=== PATIENT | male | born 1935 | race African-American/Black ===

== ENCOUNTER 2016-05-16 20:10 | Inpatient (IN) | payer OTHER ==
--- NOTE | ~2016-05-16 | HP ---
Unit #: [id number] #: [id number] Patient: MAGAN CHOE [id number] [address] [place], [place] [address] [id number] I MR#: [id number] NAME: MAGAN CHOE. ROOM: 228 Age: 81 Sex: M Admission Date: 05/16/2016 : 1935 Attending Physician: Mau Butler M.D. HISTORY AND PHYSICAL CHIEF COMPLAINT Diarrhea. HISTORY OF PRESENTING ILLNESS A 81-year-old male who has multiple chronic medical issues and is under hospice care was having diarrhea and a lot of stool in his colostomy bag for the last two days or so. Patient's [facility] nurse, Jovanna, advised patient's daughter to send him to the hospital for possible dehydration and treatment. I have discussed with the patient's daughter, Tara, at length. She still confirms that patient is Do Not Resuscitate and will continue to be under hospice care. Per patient's daughter, he was having loose stool for the last two days or so, and it was thought that he was dehydrated. In the ER, patient's renal functions are worse than normal, and chest x-ray, single views, shows possible retrocardiac infiltrate. Patient had an episode of vomiting, although since admission he has not had any vomiting, and since admission, he has not had a lot of stool in his colostomy bag. Patient is not able to provide any history, and most of the history was taken from patient's daughter and patient's son who are at the bedside. No complaint of fever, chills, or rigors. Patient does not communicate much. He just talks softly once in a while per patient's son. PAST MEDICAL HISTORY 1. Chronic kidney disease stage 4. 2. Chronic anemia. 3. Hemorrhagic stroke. 4. Peripheral vascular disease. 5. Hypertension. 6. Benign prostatic hypertrophy. HOME MEDICATIONS 1. Fluoxetine 20 mg daily. 2. Haldol 2 mg at bedtime. 3. Flomax 0.4 mg daily. 4. Vitamin D3 at 50,000 units weekly. 5. Lortab 5/325 at 1 tablet q.4 p.r.n. 6. Famotidine 20 mg daily. 7. Haldol 2 mg every 6 hours p.r.n. 8. Robitussin on p.r.n. basis. 9. Sodium bicarbonate 1300 mg twice daily. 10. Combivent 1 inhaler q.4 p.r.n. SOCIAL HISTORY Patient lives at home with his daughter. No history of smoking, alcohol, Unit #: [id number] #: [id number] Patient: MAGAN CHOE or drug abuse at this time. PAST SURGICAL HISTORY 1. Carotid endarterectomy. 2. Colectomy with colostomy bag. ALLERGIES No known drug allergies. FAMILY HISTORY Unremarkable. REVIEW OF SYSTEMS As per History of Presenting Illness. PHYSICAL EXAMINATION GENERAL: Patient is lying in bed in no respiratory distress. VITAL SIGNS: Blood pressure is 120/68, respiratory rate 16, pulse 130, and temperature 97.5. On admission, patient's blood pressure was 90/63, respiratory rate 15, pulse 108, and temperature 97.4. HEENT: Head is normocephalic. NECK: Supple. CHEST: Decreased air entry bilaterally. CARDIOVASCULAR: S1 and S2 positive. Tachycardia. ABDOMEN: Soft. Colostomy bag seems to be empty at this time. No tenderness or rigidity. Bowel sounds are positive. EXTREMITIES: Negative edema. Patient has contractures on the upper extremities. NEUROLOGIC: Exam is very limited. DIAGNOSTIC STUDIES LABORATORY: WBC 7.7, hemoglobin 9, hematocrit 26.2, and platelet count of 230,000. Influenza A and B are negative. Sodium 134, potassium 4.4, chloride 99, BUN 49, and creatinine 5. Liver enzymes are stable. Urinalysis showed 2+ leukocyte esterase, but urine bacteria is negative. Stool study so far is negative. C. difficile is also negative. IMAGING: Chest x-ray was done which showed retrocardiac infiltrate in the left lower lobe, possible pneumonia. ASSESSMENT Patient is being admitted to medical/surgical unit with: 1. Acute on chronic renal failure. Patient has a history of chronic kidney disease stage 4. 2. Diarrhea per patient's family. Clostridium difficile has been ruled out at this time. 3. Probable pneumonia. 4. History of cerebrovascular accident in the past. 5. Anemia of chronic disease. 6. History of peripheral vascular disease. 7. Dementia. 8. Benign prostatic hypertrophy. 9. Do Not Resuscitate. 10. Under hospice care. PLAN Admit to telemetry unit. IV fluids are being started. IV Rocephin and Zithromax are being started for possible community-acquired pneumonia. Unit #: [id number] #: [id number] Patient: MAGAN CHOE SCDs will be done. Home medications have been reviewed and adjusted. I have discussed with patient's daughter at length about the plan of care. She does verbalize understanding, and she would like to take him back once he is stable. Dictated by Federica Yang TD: 05/17/2016 15:28 JOB #: [id number] HISTORY AND PHYSICAL Page 1 of 1 X Alesha Odom MD X HISTORY AND PHYSICAL
--- NOTE | ~2016-05-16 | CO ---
Unit #: [id number] #: [id number] Patient: MAGAN CHOE [id number] [address] [place], [place] [address] [id number] I MR#: [id number] NAME: MAGAN CHOE ROOM: 228 Age: 81 Sex: M Admission Date: 05/16/2016 : 1935 Attending Physician: Mau Butler M.D. Consultation Date: 05/19/2016 CONSULTATION REPORT REASON FOR CONSULTATION Renal failure and hypercalcemia. Thank you very much for asking us to see this patient in consultation. HISTORY OF PRESENT ILLNESS This is a 81-year-old male, who has a history of chronic kidney disease stage 4, whose creatinine when he left the hospital on 04/27/2016 was 3.1, calcium 8.6 was in a group home. He has a history of CVA, immobilization, vascular dementia. Apparently, he is under the hospice care now and was sent back from group home due to worsening mental status and increased ostomy output. The patient was noted to have a BUN and creatinine of 49 and 5.0 with a calcium of 12.1. BUN and creatinine yesterday 55 and 4.4 with calcium 11.5, sodium of 134, and potassium of 4.3. The patient currently has decreased response, really will not answer any questions. PAST MEDICAL HISTORY History of hemorrhagic CVA in the past with immobilization; history of vascular dementia; history of GI bleed; history of BPH; history of hypertension; history of peripheral vascular disease; history of chronic kidney disease, stage 4; history of Clostridium difficile in the past; history of anemia, questionable outpatient Procrit in the group home; history of status post colectomy with colostomy. He is status post endarterectomy, history of Sikhism. SOCIAL HISTORY He is a previous smoker, none now. prison, he is under hospice care now. ALLERGIES No known drug allergies. FAMILY HISTORY He did have a son who is on dialysis. REVIEW OF SYSTEMS Unable to obtain. PHYSICAL EXAMINATION GENERAL: Again, he has decrease response, he will kind of nod, but really will not follow any major commands or answer questions. He is contracted. VITAL SIGNS: His temperature is 98.5, pulse 65 to 125, blood pressure 95 to 134 over 50 to 70s. Unit #: [id number] #: [id number] Patient: MAGAN CHOE HEENT: He is normocephalic and atraumatic. Pupils are equal, round, and reactive to light. His mouth is dry. No erythema. NECK: Supple. No adenopathy. CARDIAC: Regular rate and rhythm without a rub. No S3 or S4. LUNGS: Have bilateral rhonchi. ABDOMEN: Bowel sounds positive. Ostomy present, nontender. EXTREMITIES: He has no lower extremity swelling. SKIN: No rashes. : Deferred. DIAGNOSTIC STUDIES LABORATORY RESULTS: Showed a sodium of 134, potassium of 4.3, chloride is 103, bicarb is 24, BUN 55, creatinine is 4.4 down from 5, calcium is 11.5. UA shows specific gravity of 1.022, 1+ protein, 25 to 50 rbc's, 5 to 10 wbc's, only 20 to 30 gram-negative rods. His stool is negative for Clostridium difficile. IMAGING STUDIES: His chest x-ray is consistent with pneumonia. ASSESSMENT AND PLAN 1. Acute on chronic kidney disease, stage 4. Certainly renal function is worse from when he was discharged. I suspect this is volume related with large ostomy output and decreased intake. I would like to check a renal ultrasound just to rule out obstruction, although certainly if he does have it, we may need to have a chronic Hardin. I really do not want to do any further workup on him, again he is in hospice care. His renal function is improving with fluid. We will increase his normal saline to 125 mL an hour and certainly not a dialysis candidate. We will have check labs in a.m. if here. 2. Hypercalcemia, increased calcium secondary to most likely volume related with volume depletion. Again, I really doubt we should do any further workup or just continue hydration while he is here. Hospice is going to re-evaluate questionable discomfort care. 3. Pneumonia. 4. History of cerebrovascular accident, decreased mental status. 5. In hospice. Dictated byIsak Schwarz M.D. KARELY/chemo TD: 05/19/2016 08:33 JOB #: [id number] CONSULTATION REPORT Page 1 of 1 X Grabiel Schwarz MD CONSULTATION REPORT
--- NOTE | ~2016-05-16 | EKG ---
PATIENT: MAGAN CHOE UNIT #: [id number] Ventricular Rate: 112 BPM Atrial Rate: 112 BPM P-R Interval: 142 ms QRS Duration: 76 ms Q-T Interval: 320 ms QTC Calculation(Bezet): 436 ms P [place]: 86 degrees Calculated R [place]: 53 degrees Calculated T [place]: 68 degrees Diagnosis Line: Sinus tachycardia Diagnosis Line: Otherwise normal ECG Diagnosis Line: When compared with ECG of 21-APR-2015 18:25, Diagnosis Line: Premature atrial complexes are no longer Present Diagnosis Line: Confirmed by MELANIE NICOLE MD ([id number]) on Diagnosis Line: 05/17/2016 2:26:33 PM INTERPRETING MD: BONNIE GERONIMO
--- NOTE | ~2016-05-16 | DS ---
Unit #: [id number] #: [id number] Patient: MAGAN CHOE [id number] [address] [address] [id number] I MR#: [id number] NAME: MAGAN CHOE. ROOM: 228 Age: 81 Sex: M Admission Date: 05/16/2016 : 1935 Discharge Date: 05/19/2016 Attending Physician: Mau Butler M.D. Primary Care Physician: Mireya Primary Care Physician DISCHARGE SUMMARY DISCHARGE DIAGNOSES 1. Acute kidney injury on chronic kidney disease. 2. Pneumonia. 3. Anemia of chronic disease. 4. Dementia. 5. History of cerebrovascular accident. 6. History of benign prostatic hypertrophy. 7. Hospice care. DISCHARGE MEDICATIONS 1. Combivent inhaler q.4 h. p.r.n. 2. Sodium bicarbonate 1300 mg p.o. b.i.d. 3. Flomax 0.4 mg daily. 4. Prozac 20 mg daily. 5. Desyrel 50 mg q.h.s. 6. Haldol 2 mg q.h.s. and q.6 h. p.r.n. for agitation. 7. Robitussin p.r.n. for cough and congestion. 8. Pepcid 20 mg daily. 9. [place] 5/325 one tablet q.4-6 h. p.r.n. pain. 10. Vitamin D 50,000 units weekly. 11. Z-Bowen. DISPOSITION Going to [facility] respite/hospice unit. CONSULTANTS DONE THIS HOSPITAL STAY Nephrology, Dr. [place]. LABS AND DIAGNOSTICS AND PROCEDURES DONE THIS HOSPITAL STAY 1. Chest x-ray: Airspace density concerning for pneumonia. 2. Renal ultrasound: Bilateral cortical thinning. Medical renal disease. Multiple left-sided nonobstructing renal stones. HISTORY OF PRESENT HOSPITAL STAY Please refer to H and P done by my colleague for the initial presentation on this male. ACTIVE PROBLEMS AND DIAGNOSES Acute kidney injury on chronic kidney disease: Status post evaluation per Nephrology. At this point will continue current bicarb and current medications. Patient also evaluated by hospice and going into hospice care. At this point again continue all the medications. Will defer for Unit #: [id number] #: [id number] Patient: MAGAN CHOE the discontinuation of the current meds and leaving the patient on comfort measures only per hospice at the retirement. Pneumonia: Was treated with the Zithromax and Rocephin. We will continue with the Z-Bowen. Anemia of chronic disease, stable. Dementia. History of CVA. History of BPH. DISPOSITION As above. DISCHARGE MEDICATIONS As above. Dictated by... Mau Butler M.D. OC/delores TD: 05/19/2016 18:35 JOB #: [id number] DISCHARGE SUMMARY Page 1 of 1 X Mau Butler MD X DISCHARGE SUMMARY
--- NOTE | ~2016-05-16 | CR72 ---
[facility] A Service of [facility] RADIOLOGY TEXT RESULTS PATIENT: MAGAN CHOE LOCATION: [facility] : 37 UNIT #: [id number] AGE: [address]: Morales Arizmendi MD SEX: M ORDER DR: [id number] [facility] [address] [place] [facility]. [place], [place] [address] [id number] MR#: [id number] Acc #: [id number] NAME: MAGAN CHOE. : 1935 SEX: M STUDY DATE/TIME: 05/16/20162000 UNIT: [facility] ROOM: STUDY DESCRIPTION: CR Chest Single View Portable Attending Physician: Morales Arizmendi M.D. Ordering Physician: Ed Doctor [id number] [facility] Primary Care Physician: No Primary Care Physician MEDICAL IMAGING REPORT This report is preliminary unless electronic signature is present EXAM Chest portable 05/16/2016 at 20:01 hours HISTORY A 81-year-old man with shortness of air, congestion and weakness today. COMPARISON Chest x-ray 04/22/[address] 04/23/2015 FINDINGS Single upright view of the chest demonstrates the patient to be rotated to the left. Allowing for this, the cardiac, mediastinal and hilar contours are stable. There is patchy left retrocardiac density in the left lower lobe concerning for pneumonia, less likely atelectasis. The right lung is clear. IMPRESSION Film is limited by rotation of the patient. There is retrocardiac airspace density concerning for pneumonia, less likely atelectasis. There is no pleural effusion or edema. STAT * RESULT Dictated by... Magaly Beauchamp M.D. THIS IS AN ELECTRONICALLY VERIFIED REPORT Magaly Beauchamp M.D. at 05/16/2016 9:00 PM [facility] A Service of [facility] RADIOLOGY TEXT RESULTS PATIENT: MAGAN CHOE LOCATION: REPLACED BY [facility] #: [id number] : 37 UNIT #: [id number] AGE: [address]: Morales Arizmendi MD SEX: M ORDER DR: TD: 05/16/2016 20:18 JOB #: [id number] MEDICAL IMAGING REPORT COPY
--- NOTE | ~2016-05-16 | US77 ---
[facility] A Service of [facility] RADIOLOGY TEXT RESULTS PATIENT: MAGAN CHOE LOCATION: C2A 228-01 : 37 UNIT #: [id number] AGE: [address]: Mau Butler MD SEX: M ORDER DR: [id number] [facility] [address]. [place], [place] [address] [id number] I MR#: [id number] Acc #: [id number] NAME: MAGAN CHOE. : 1935 SEX: M STUDY DATE/TIME: 05/19/2016 11:41 UNIT: C2 ROOM: 228 STUDY DESCRIPTION: US Kidney Bilateral Complete Attending Physician: Mau Butler M.D. Ordering Physician: Ashley Schwarz M.D. Primary Care Physician: Primary Care Physician No MEDICAL IMAGING REPORT This report is preliminary unless electronic signature is present EXAM Renal ultrasound INDICATION Chronic kidney disease, stage 4. TECHNIQUE Kamara-scale and color Doppler sonographic images were obtained of the kidneys and bladder. FINDINGS Patient's right kidney is small in size measuring about 8.0 x 4.1 x 4.5 cm. There is no evidence of hydronephrosis. I do think the patient probably has some cortical thinning and certainly it appears to be echogenic. No solid or cystic renal masses are seen on the right and there is no hydronephrosis. Bladder cannot be seen due to the presence of a colostomy. Patient's left kidney is atrophic measuring 7.0 x 3.6 x 3.9 cm. It is also echogenic with cortical thinning and there appear to be multiple shadowing stones within the left kidney. There is no hydronephrosis. No solid or cystic renal masses are seen IMPRESSION 1. Bilateral cortical thinning and increased renal echogenicity in keeping with history of chronic medical renal disease. I also think the left kidney in particular appears atrophic. This is certainly much more apparent than on the prior study from April 23, 2015. 2. Multiple left-sided nonobstructing renal stones. Again these were not clearly identified on the prior examination. CT may be complimentary for additional evaluation. 3. Bladder cannot be visualized due to overlying bowel gas secondary to the patient's colostomy. Dictated by... [facility] A Service of [facility] RADIOLOGY TEXT RESULTS PATIENT: MAGAN CHOE LOCATION: [facility] 228-01 : 37 UNIT #: [id number] AGE: [address]: Mau Butler MD SEX: M ORDER DR: Kimberly Gordon M.D. THIS IS AN ELECTRONICALLY VERIFIED REPORT Kimberly Gordon M.D. at 05/19/2016 4:39 PM YANICK/michel TD: 05/19/2016 14:39 JOB #: [id number] MEDICAL IMAGING REPORT Page 1 of 1 COPY
[~2016-05-16 20:10] MED LIST: ACETAMINOPHEN650 M1 PO; ARANESP INJ; ASPIRIN81 MG; CELEXA PO; COMBIVENT U/D3 M2 INH; DOCUSATE SODIU100 MG PO; FAMOTIDINE PO; FERROUS SU324 ( 65 ) PO; FINASTERIDE5 M1 PO; FLEET ENEMA133 M1 RC; FLOMAX0.4 M1 PO; FLORASTOR250 M1 PO; GENTLE LAXATIVE10 MG RC; HUMIBID-LA600 MG PO; HYDROCODON-ACE1 EAC5 PO; HYDROCODON-ACE1 EAC7 PO; IBUPROFEN200 M1 PO; LEVAQUIN PO; LOPRESSOR PO; MILK OF MAGNESIA PO; MIRALAX17 GM PO; PEPCID PO; PROCRIT2000 U/ML INJ; PROSCAR5 MG PO; PROTONIX PO; QUESTRAN PACK4 G/PK1 PO; SIMETHICONE180 MG PO; SIMVASTATIN40 MG PO; SODIUM BICARBO650 MG PO; TOPROL XL PO; TYLENOL325 M1 PO; ULTRAM PO; ZOCOR PO
[2016-05-16 21:01] LABS: BASOPHIL% 0.1 % (0-2.5); EOSINOPHIL% 0.4 % (0.0-7.0); HEMATOCRIT 26.2 % (38.0-50.0); LYMPHOCYTE# 0.8 X10e3 (1.0-3.5); LYMPHOCYTE% 10.5 % (17.0-45.0); MEAN CELL VOLUME 91.7 FL (83-96); MEAN CORPUSCULAR HEMOGLOBIN 31.4 PG (28-34); MEAN CORPUSCULAR HGB CONC 34.2 g/dL (30-36); MEAN PLATELET VOLUME 6.7 FL (6.5-11.5); MONOCYTE# 0.6 X10e3 (0-1.0); MONOCYTE% 8.2 % (3.0-12.0); NEUTROPHIL# 6.2 X10e3 (1.5-7.1); NEUTROPHIL% 80.8 % (40-75); PLATELET COUNT 230 X10e3 (140-420); RED BLOOD COUNT 2.86 X10e (3.90-5.60); RED CELL DISTRIBUTION WIDTH 15.1 % (11.0-15.5); WHITE BLOOD COUNT 7.7 X10e3 (4.0-10.5)
[2016-05-16 21:05] LABS: DIFF IND NO
[2016-05-16 21:11] LABS: INFLUENZA A NEG (NEG); INFLUENZA B NEG (NEG)
[2016-05-16 21:24] LABS: ALBUMIN SERUM 3.4 g/dL (3.5-5.0); BILIRUBIN,TOTAL 0.4 mg/dL (0.2-2.0); BUN/CREATININE RATIO 9.8; CALCIUM SERUM 12.1 mg/dL (8.4-10.2); GLOM FILT RATE Estimated 14.5 mL/min (>60); POTASSIUM 4.4 mmol/L (3.5-5.1); PROTEIN TOTAL SERUM 8.1 g/dL (6.0-8.3)
[2016-05-16 22:28] LABS: URINE SOURCE CLEAN CATCH
[2016-05-16 22:43] LABS: URINE APPEARANCE CLOUDY; URINE BILIRUBIN NEG (NEG); URINE BLOOD 3+ (NEG); URINE COLOR YELLOW; URINE GLUCOSE NEG (NEG); URINE KETONE TRACE (NEG); URINE LEUKOCYTE ESTERASE 2+ (NEG); URINE NITRATE NEG (NEG); URINE PROTEIN 1+ (NEG); URINE SPECIFIC GRAVITY 1.022 (1.003-1.035); URINE UROBILINOGEN 0.2 MG/DL (NEG)
[2016-05-16 22:47] LABS: CULTURE INDICATED? YES; URBCS1 AUWI 25-50 /[HPF] (0-2); URINE BACTERIA AUWI NEG (NEGATIVE); URINE SQUAMOUS EPITHELIAL CELL FEW /[HPF]
[2016-05-16 22:57] LABS: URINE GRANULAR CAST 0-2 /[HPF]
[2016-05-16] MEDS ORDERED: SELFEMRA20 MG PO (23:01)
[2016-05-16] MEDS ORDERED: HALOPERIDOL2 MG PO ×2 (23:01→23:04)
[2016-05-16] MEDS ORDERED: FLOMAX0.4 M1 PO (23:01)
[2016-05-16] MEDS ORDERED: VITAMIN D350000 UNIT PO (23:02)
[2016-05-16] MEDS ORDERED: LORTAB 5-325 M1 EACH PO (23:03)
[2016-05-16] MEDS ORDERED: FAMOTIDINE20 M1 PO (23:03)
[2016-05-16] MEDS ORDERED: ROBITUSSIN-CF SY1 ML PO (23:05)
[2016-05-16] MEDS ORDERED: SOD BICARBONATE PO (23:06)
[2016-05-16] MEDS ORDERED: COMBIVENT U/D3 M2 INH (23:07)
[2016-05-16] MEDS ORDERED: DESYREL50 MG PO (23:07)
[2016-05-17 05:28] LABS: HEMOGLOBIN 8.7 gm/dL (13.0-16.0); MEAN CELL VOLUME 92.2 FL (83-96); MEAN CORPUSCULAR HGB CONC 33.6 g/dL (30-36); MEAN PLATELET VOLUME 7.1 FL (6.5-11.5); RED BLOOD COUNT 2.82 X10e (3.90-5.60)
[2016-05-17 06:04] LABS: BUN/CREATININE RATIO 10.62; CREATININE SERUM 4.8 mg/dL (0.6-1.4); GLOM FILT RATE Estimated 15.2 mL/min (>60); POTASSIUM 4.4 mmol/L (3.5-5.1)
[2016-05-18 12:41] LABS: BUN/CREATININE RATIO 12.5; CALCIUM SERUM 11.5 mg/dL (8.4-10.2); CREATININE SERUM 4.4 mg/dL (0.6-1.4); GLOM FILT RATE Estimated 16.8 mL/min (>60); POTASSIUM 4.3 mmol/L (3.5-5.1)
[2016-05-19 06:34] LABS: HEMATOCRIT 24.3 % (38.0-50.0); HEMOGLOBIN 8.3 gm/dL (13.0-16.0); MEAN CELL VOLUME 92.4 FL (83-96); MEAN CORPUSCULAR HEMOGLOBIN 31.4 PG (28-34); RED BLOOD COUNT 2.64 X10e (3.90-5.60); RED CELL DISTRIBUTION WIDTH 14.7 % (11.0-15.5); WHITE BLOOD COUNT 8.4 X10e3 (4.0-10.5)
[2016-05-19 07:05] LABS: BUN/CREATININE RATIO 13.68; CALCIUM SERUM 11.7 mg/dL (8.4-10.2); CREATININE SERUM 3.8 mg/dL (0.6-1.4); GLOM FILT RATE Estimated 19.9 mL/min (>60); POTASSIUM 4.8 mmol/L (3.5-5.1)
== END 2016-05-20 00:30 | DRG 682 ==
LOC: CED 20:10 → CEDOF 20:11 → C2A 05-17 00:37
PROVIDERS: Emergency Medicine; Hospitalist; Physician Assistant Medical
DX: N17.9 Acute kidney failure, unspecified (principal); J18.9 Pneumonia, unspecified organism; E86.0 Dehydration; D63.1 Anemia in chronic kidney disease; F03.90 Unspecified dementia, unspecified severity, without behavioral disturbance, psychotic disturbance, mood disturbance, and anxiety; E83.52 Hypercalcemia; I12.9 Hypertensive chronic kidney disease with stage 1 through stage 4 chronic kidney disease, or unspecified chronic kidney disease; N18.9 Chronic kidney disease, unspecified; N40.0 Benign prostatic hyperplasia without lower urinary tract symptoms; Z86.73 Personal history of transient ischemic attack (TIA), and cerebral infarction without residual deficits; Z51.5 Encounter for palliative care; R19.7 Diarrhea, unspecified; I73.9 Peripheral vascular disease, unspecified; Z66 Do not resuscitate; N18.4 Chronic kidney disease, stage 4 (severe); Z93.3 Colostomy status; F01.50 Vascular dementia, unspecified severity, without behavioral disturbance, psychotic disturbance, mood disturbance, and anxiety; Z87.891 Personal history of nicotine dependence
CPT/HCPCS: 36415; 71010; 76770; 80048; 80053; 81003; 85025; 85027; 87045; 87086; 87088; 87186; 87427; 87493; 87804; 87899; 93005; 94640; 94760; 96360; 99285; J0456; J0696